=== PATIENT | male | born 1975 | race Caucasian/White ===

== ENCOUNTER 2018-12-20 18:44 | Emergency (ER) | payer MEDICAID ==
[~2018-12-20] VITALS: Ht 182.9 cm; Wt 65.0 kg
[~2018-12-20 18:44] MED LIST: CEFD300C37 PO; GABA600T7 PO
[2018-12-20 18:53] VITALS: BP 129/80
--- NOTE | 2018-12-20 19:11 | NUR ---
Pt c/o left thumb pain after using a leaf blower last night, states he got it stuck in the fan part because there was no guard. No obv trauma noted, pt able to move digits, but reports pain. Denies wrist pain. Also states he had stiches placed in his hand here recently and never came back to have them removed and would like that addressed today as well.
--- NOTE | 2018-12-20 19:17 | NUR ---
PER [employer] PT NON COMPLIANT AND RUDE DURING PICTURES. PER [employer] PT WAS STAMMING HIS HAND ON THINGS IN FRUSTRATIONS. PT NOW BACK IN ROOM.
--- NOTE | 2018-12-20 20:33 | NUR ---
PT NOT IN ROOM. SEARCH OF REST ROOMS AND LOBBY YIELDED NO PT. PT HAS ELOPED.
== END 2018-12-20 20:35 | disposition left against medical advice (07) ==
LOC: ED 20:29
DX: G89.11 Acute pain due to trauma (principal); M79.642 Pain in left hand; F17.200 Nicotine dependence, unspecified, uncomplicated
CPT/HCPCS: 99283